=== PATIENT | female | born 2005 | race Caucasian/White ===

== ENCOUNTER 2024-12-23 15:13 | Emergency (ER) | payer OTHER, SELFPAY ==
[2024-12-23 15:16] VITALS: BP 130/86
[2024-12-23 15:43] LABS: % Basophils 0.8 % (0-2); % Eosinophils 1.4 % (0-6); % Lymphocytes 31.3 % (20.5-51.1); % Monocytes 8.8 % (1.7-9.3); % Neutrophils 57.7 % (42.2-75.2); Absolute Eosinophils 0.1 10^3/uL (0-0.7); Absolute Lymphocytes 1.6 10^3/uL (1.2-3.4); Absolute Monocytes 0.5 10^3/uL (0.1-0.6); Hematocrit 40.7 % (37.0-47.0); Hemoglobin 13.7 g/dL (12.0-16.0); Mean Corp Hgb Conc. 33.7 g/dL (33.0-37.0); Mean Corpuscular Hgb 30.4 pg (27.0-31.0); Mean Corpuscular Volume 90.4 fL (81.0-99.0); Mean Platelet Volume 11.3 fL (7.4-10.4); Nucleated Red Blood Cells % 0 %; Platelet Count 214 10^3/uL (130-400); Red Cell Dist. Width 12.4 % (11.5-14.5); White Blood Cell Count 5.1 10^3/uL (4.8-10.8)
[2024-12-23 15:53] LABS: HCG, Serum Qualitative Screen Negative
[2024-12-23 15:59] LABS: ALT (SGPT) 15 U/L (0-35); AST (SGOT) 21 U/L (14-36); Alkaline Phosphatase 83 U/L (38-126); Blood Urea Nitrogen 10 mg/dl (7-17); Calcium 9.8 mg/dl (8.4-10.2); Carbon Dioxide 25 mmol/L (22-30); Chloride 105 mmol/L (98-107); Glucose 111 mg/dl (70-99); Sodium 142 mmol/L (135-145); Total Bilirubin 0.6 mg/dl (0.2-1.3); Total Protein 7.5 g/dl (6.3-8.2); eGFR > 60.00
[2024-12-23 16:05] LABS: Potassium 4.6 mmol/L (3.5-5.1)
[2024-12-23 16:26] VITALS: BP 132/77
[2024-12-23] MEDS: NSS 1000 IV (17:01)
--- NOTE | 2024-12-23 17:04 | ED.GENMED ---
History of Present Illness
<Jory Ferrer DO - Last Filed: 12/23/24 17:18>
General
Chief Complaint: Fainting Sensation
Time Seen by Provider: 12/23/24 16:17
History of Present Illness
History of Present Illness:
19-year-old female with history of depression presenting to the emergency department for lightheadedness. Patient reports that in the past several years she has struggled with episodes of feeling faint and lightheadedness. However the past 2 days
feels that it has been worse. Notes that yesterday she had episode where she stood up, got very short of breath and felt like she was get a pass out. Today she also had an episode where she was having chills. Denies known sick contacts. Does
report a recent meniscus repair a few weeks ago to her right knee, uncomplicated. She has been ambulatory. Denies any history of blood clots. Denies present chest pain, difficulty breathing, abdominal pain or vomiting. Denies any true syncopal
episodes. Denies additional acute medical complaints
Phy Exam
<Jory Ferrer DO - Last Filed: 12/23/24 17:18>
Physical Exam
Physical Exam:
General: Well-appearing, no clinical signs of dehydration, nontoxic and in no acute distress
HEENT: protecting airway
Neck: appears supple
CV: Normal heart rate, regular rhythm
Resp: No accessory muscle use, no increased work of breathing, lungs clear to auscultation bilaterally
Abd: Soft and non-distended, no tenderness to palpation
Extremities: No deformities, no swelling, no erythema. Healing incisions at right knee without any swelling or redness
Neuro: alert, no focal neurologic deficit
: deferred
Rectal: deferred
Psych: Normal affect
Skin: Intact
Course
<Jory Ferrer DO - Last Filed: 12/23/24 17:18>
Orders/Labs/Results
Orders:
Orders
12/23/24 13:35
Free T4 Urgent
TSH Reflex To Free T4 Urgent
Comment: ADD ON
12/23/24 15:21
Electrocardiogram (*1) Urgent
Reason for Study: Chest Pain
EKG- Treatment ONCE
Test Result ONCE
12/23/24 15:35
Complete Blood Count/With Diff Urgent
Comprehensive Metabolic Panel Urgent
HCG, Serum Qualitative Screen Urgent
Comment: Notify provider if positive test present
12/23/24 16:38
Add On- LAB Urgent
Tests Added?: tsh with reflex
Orthostatic VS- Treatment ONCE
0.9% Sodium Chloride 1000 ml [Nss] 1,000 ml IV BOLUS
12/23/24 17:00
COVID-19 Antigen Urgent
Source: Nasal Swab
D-Dimer Urgent
Influenza A+B Rapid Molecular Urgent
RACHELLE Source: Nasal Swab
Specimen Description:
12/23/24 18:22
CT Chest PE Study Urgent
Comment:
Reason For Exam: syncope
Abnormal Lab Results
12/23/24 12/23/24 12/23/24
13:35 15:35 17:00
MPV 11.3 H fL
(7.4-10.4)
D-Dimer 0.82 H ug/mlFEU
(0.00-0.50)
Glucose 111 H mg/dl
(70-99)
TSH (Reflex) 0.08 L uIU/ml
(0.47-4.68)
12/23/24 15:35
12/23/24 15:35
Vital Signs
Initial and Last Documented VS:
Initial Vital Signs
Temp Pulse Resp BP Pulse Ox
36.8 C 76 16 130/86 100
12/23/24 15:16 12/23/24 15:16 12/23/24 15:16 12/23/24 15:16 12/23/24 15:16
Last Documented Vital Signs
Temp Pulse Resp BP Pulse Ox
36.8 C 70 18 132/77 100
12/23/24 15:16 12/23/24 18:30 12/23/24 18:38 12/23/24 16:26 12/23/24 18:30
<Chris Franklin MD - Last Filed: 12/23/24 20:26>
Orders/Labs/Results
Orders:
Orders
12/23/24 13:35
Free T4 Urgent
TSH Reflex To Free T4 Urgent
Comment: ADD ON
12/23/24 15:21
Electrocardiogram (*1) Urgent
Reason for Study: Chest Pain
EKG- Treatment ONCE
Test Result ONCE
12/23/24 15:35
Complete Blood Count/With Diff Urgent
Comprehensive Metabolic Panel Urgent
HCG, Serum Qualitative Screen Urgent
Comment: Notify provider if positive test present
12/23/24 16:38
Add On- LAB Urgent
Tests Added?: tsh with reflex
Orthostatic VS- Treatment ONCE
0.9% Sodium Chloride 1000 ml [Nss] 1,000 ml IV BOLUS
12/23/24 17:00
COVID-19 Antigen Urgent
Source: Nasal Swab
D-Dimer Urgent
Influenza A+B Rapid Molecular Urgent
RACHELLE Source: Nasal Swab
Specimen Description:
12/23/24 18:22
CT Chest PE Study Urgent
Comment:
Reason For Exam: syncope
Abnormal Lab Results
12/23/24 12/23/24 12/23/24
13:35 15:35 17:00
MPV 11.3 H fL
(7.4-10.4)
D-Dimer 0.82 H ug/mlFEU
(0.00-0.50)
Glucose 111 H mg/dl
(70-99)
TSH (Reflex) 0.08 L uIU/ml
(0.47-4.68)
12/23/24 15:35
12/23/24 15:35
Vital Signs
Initial and Last Documented VS:
Initial Vital Signs
Temp Pulse Resp BP Pulse Ox
36.8 C 76 16 130/86 100
12/23/24 15:16 12/23/24 15:16 12/23/24 15:16 12/23/24 15:16 12/23/24 15:16
Last Documented Vital Signs
Temp Pulse Resp BP Pulse Ox
36.8 C 70 18 132/77 100
12/23/24 15:16 12/23/24 18:30 12/23/24 18:38 12/23/24 16:26 12/23/24 18:30
<Jory Ferrer DO - Last Filed: 12/23/24 17:18>
MDM/Problems Addressed
MDM/Problems Addressed:
19-year-old female presenting for lightheadedness and feeling like she is going to pass out. Vital signs are normal.
On exam, patient is resting comfortably, no acute distress or discomfort. Normal presenting vital signs. Unremarkable physical exam. No focal neurologic deficits. No significant signs of severe dehydration or volume depletion, moist mucous
membranes. Unremarkable cardiac and pulmonary exam, no tenderness to the abdomen. EKG obtained, nonischemic, no arrhythmia. Without present concern for cardiac pathology. Screening laboratory analysis performed prior to my assessment, normal
electrolyte panel, no anemia. No leukocytosis. Patient does note that his recent surgery and dyspnea during one of her episodes, so we will screen with D-dimer. Patient is also requesting that she get her TSH checked, which is reasonable, does
note generalized fatigue. Will start patient on IV fluids in the setting of mild dehydration. Will also check orthostatics
<Jory Ferrer DO - Last Filed: 12/23/24 17:18>
*EKG
Interpreted by ED Provider?: Yes
EKG Intrepretation Date: 12/23/24
EKG Intrepretation Time: 17:13
Interpretation: normal
Heart Rate: 71
Rate: normal
Rhythm: sinus
[place]: normal axis
Interval: normal interval
QRS Pattern: normal QRS
Ischemia: no ischemia
*Critical Care Note
Total Time (30-74mins, 75-104mins- exclusive of procedures): Not Applicable
<Chris Franklin MD - Last Filed: 12/23/24 20:26>
Update Note
Update Note:
UPDATE (Chris Franklin MD)
I have seen and evaluated the patient after signout and reviewed all labs and imaging.
Focused HPI: 19-year-old female presents after presyncopal event associated with some shortness of breath. Similar episodes with dehydration in the past but she says she has been doing plenty of fluids. No chest pain.
Physical exam: Awake alert no distress. Vital signs normal. No cardiac rubs gallops or murmurs. Lungs sound clear. No edema in the extremities.
Medical Decision Makin-year-old female presents after presyncopal event. Vitals and exam reassuring. EKG sinus rhythm with no QT prolongation, no delta wave, no Brug[place], no ectopy. CBC and CMP unremarkable. hCG is negative. D-dimer was
slightly positive; follow-up CT chest shows no PE. Vital stable throughout ED stay. Stable for discharge to follow-up with PCP.
ED Attending Note
<Jory Ferrer DO - Last Filed: 12/23/24 17:18>
-
Portions of this chart may have been created with voice recognition software.� Occasional wrong word or��sound alike� substitutions may have occurred due to the inherent limitations of voice recognition software.
Discharge Plan
Departure
Patient Disposition: Home (Routine Discharge)
Date of Disposition: 12/23/24
Time of Disposition: 20:06
Patient with high blood pressure during this ER visit?: No
Discharge Problem:
Near syncope
Instructions: Syncope (Fainting) (DC)
Referrals:
NONE,* [Family Provider] -
Activity Restrictions/Additional Instructions:
Thank you for visiting the Emergency Department at [facility].
1. Please schedule a follow up appointment as directed. Call first thing tomorrow morning to make an appointment.
2. If indicated, please take your medications as instructed and indicated on discharge paperwork.
3. If any of your symptoms do not improve, or persist, or become more severe within 6-12 hours, please return to the emergency department for further care.
4. Please return to the emergency department if you develop a headache, neck pain/stiffness, fever greater than 100.4F, chest pain, shortness of breath, persistent nausea, vomiting, slurred speech, difficulty walking, numbness/tingling, weakness,
signs of infection or any other symptoms that are worrisome to you.
Please call [phone] if you have any questions.
Interventions
Interventions:
*Risk Screen - Suicide Last Done: 12/23/24 15:16
*General Assessment Last Done: 12/23/24 15:16
*Neglect/Abuse Screening Last Done: 12/23/24 15:16
*ED- Fall Risk Assessment Last Done: 12/23/24 17:00
*ED COVID-19 Vaccine History Last Done: 12/23/24 17:00
ED- Cardiac Assessment Last Done: 12/23/24 17:00
ED- Neurological Assessment Last Done: 12/23/24 17:00
Discharge Date and Time
Print Language: VINCENTIAN
[2024-12-23 17:55] LABS: TSH Reflex To Free T4 0.08 uIU/ml (0.47-4.68)
[2024-12-23 18:16] LABS: D-Dimer 0.82 ug/mlFEU (0.00-0.50)
[2024-12-23 18:19] LABS: COVID-19 Antigen Negative (Negative)
[2024-12-23 18:25] LABS: Free T4 0.87 ng/dl (0.78-2.19)
[2024-12-23 20:31] VITALS: BP 113/67
== END 2024-12-23 20:44 | disposition home or self-care (01) ==
LOC: EMR 15:13
PROVIDERS: Emergency Medicine; EMERGENCY PHYSICIAN Student in an Organized Health Care Education/Training Program
DX: R55 Syncope and collapse (principal); F32.A Depression, unspecified
CPT/HCPCS: 99284; 71275; 80053; 84439; 84443; 84703; 85025; 85379; 87502; 87811; 93005; Q9967